=== PATIENT | female | born 1940 | race American Indian/Alaskan Native ===

== ENCOUNTER 2022-03-27 13:12 | Emergency (ER) | payer MEDICARE, OTHER ==
[2022-03-27 13:55] VITALS: BP 178/74
--- NOTE | 2022-03-27 14:07 | Emergency Department Report ---
ED General Adult HPI - General Chief complaint: High BP Stated complaint: HIGH BLOOD PRESSURE Time Seen by Provider: 03/27/22 13:52 Source: patient Mode of arrival: Ambulatory Limitations: No Limitations - History of Present Illness Initial comments: Patient presents to ER from nephrology for having elevated BP. No GARCIA, No chest pain or SOB. Was anxious about receiving results. Severity scale (0 -10): 0 - Related Data Allergies Allergy/AdvReac Type Severity Reaction Status Date / Time cephalexin Allergy Unknown Verified 03/27/22 13:41 ED Review of Systems ROS: Stated complaint: HIGH BLOOD PRESSURE Other details as noted in HPI ED Past Medical Hx - Past Medical History Previous Medical History?: Yes Hx Arthritis: Yes Additional medical history: OVARIES CYST KID STONES OSTEOPORESIS ED Physical Exam - General Limitations: No Limitations ED Course Vital Signs 03/27/22 13:46 Temperature 98.6 F Pulse Rate 49 L Respiratory 20 Rate Blood Pressure 178/74 [Right] O2 Sat by Pulse 100 Oximetry ED Medical Decision Making - Medical Decision Making Patient presents to ER from nephrology for having elevated BP. No GARCIA, No chest pain or SOB. Was anxious about receiving results. Continue with her Blood pressure medication. Follow up with your Provider. Critical care attestation.: If time is entered above; I have spent that time in minutes in the direct care of this critically ill patient, excluding procedure time. ED Disposition Clinical Impression: HTN (hypertension) Disposition: 01 HOME / SELF CARE / HOMELESS Is pt being admited?: No Does the pt Need Aspirin: No Condition: Stable Instructions: Hypertension (ED), Hypertension, Adult, [id number] Additional Instructions: Please continue with medications. Follow up with yor PCP. Time of Disposition: 14:08
== END 2022-03-27 14:14 | disposition home or self-care (01) ==
LOC: ED 13:12
DX: I10 Essential (primary) hypertension (principal); M19.90 Unspecified osteoarthritis, unspecified site
CPT/HCPCS: 99282